=== PATIENT | female | born 1995 | race Asian ===

== ENCOUNTER 2024-01-07 14:26 | Inpatient (IN) | payer BC, SELFPAY ==
[2024-01-07] VITALS (9 sets, daily range): BP systolic 110–127; BP diastolic 72–90; BMI 25.7
[2024-01-07 11:51] LABS: % Basophils 0.6 % (0-2); % Eosinophils 3.1 % (0-6); % Immature Granulocytes 0.3 % (0-0.5); % Monocytes 5.9 % (1.7-9.3); % Neutrophils 65.1 % (42.2-75.2); Absolute Eosinophils 0.2 10^3/uL (0-0.7); Absolute Lymphocytes 1.7 10^3/uL (1.2-3.4); Absolute Monocytes 0.4 10^3/uL (0.1-0.6); Absolute Neutrophils 4.4 10^3/uL (1.4-6.5); Hematocrit 36.9 % (37.0-47.0); Hemoglobin 12.8 g/dL (12.0-16.0); Mean Corp Hgb Conc. 34.7 g/dL (33.0-37.0); Mean Corpuscular Hgb 31.4 pg (27.0-31.0); Mean Corpuscular Volume 90.4 fL (81.0-99.0); Nucleated Red Blood Cells % 0 %; Red Blood Cell Count 4.08 10^6/uL (4.20-5.40); Red Cell Dist. Width 12.1 % (11.5-14.5); White Blood Cell Count 6.8 10^3/uL (4.8-10.8)
[2024-01-07 11:59] LABS: INR 1.12; PT 14.2 Sec (11.4-14.6)
[2024-01-07 12:07] LABS: Platelet Count 0 10^3/uL (130-400)
[2024-01-07 12:09] LABS: ALT (SGPT) 18 U/L (0-35); AST (SGOT) 23 U/L (14-36); Albumin 4.3 g/dl (3.5-5.0); Alkaline Phosphatase 56 U/L (38-126); Blood Urea Nitrogen 23 mg/dl (7-17); Calcium 9.1 mg/dl (8.4-10.2); Carbon Dioxide 27 mmol/L (22-30); Chloride 105 mmol/L (98-107); Glucose 92 mg/dl (70-99); Potassium 4.1 mmol/L (3.5-5.1); Sodium 139 mmol/L (135-145); Total Bilirubin 0.6 mg/dl (0.2-1.3); eGFR > 60.00
--- NOTE | 2024-01-07 12:51 | ED.GENMED ---
History of Present Illness
General
Chief Complaint: Abnormal Lab Value
Source: patient
Exam Limitations: none
Time Seen by Provider: 01/07/24 12:31
Travel History
Have you had any contact with someone who has COVID-19?: No
Do you have any symptoms of coronavirus? Fever > 100 degrees, chills, cough, shortness of breath, sore throat, loss of taste or smell, muscle aches, or headache?: No
History of Present Illness
History of Present Illness:
28-year-old female with known history of ITP presents with nosebleed starting at 3 AM. She also notes purple spots on her legs. She denies lightheadedness or shortness of breath. She denies chest pain. She admits that she has been taking her
maintenance medication that is prescribed by her oncologist at [facility]. She just was not feeling up to taking the medicine. She notes a left-sided nosebleed.
Past History
Past History
ED Past Medical History: Other (Lupus, ITP)
ED Past Surgical History: None
Social History
Tobacco: Non-smoker
Alcohol: None
Personal: Single
Living: with family
Employment: Employed
Phy Exam
Physical Exam
Physical Exam:
General: Well-appearing female no acute respiratory distress
HEENT: Normocephalic atraumatic left-sided nosebleed noted. Right side is patent.
Heart: Regular rate and rhythm no murmurs
Lungs: Clear to auscultation bilateral
Skin: Purpuric lesions noted over the lower extremities bilaterally
Course
Orders/Labs/Results
Orders:
Orders
01/07/24 11:38
Complete Blood Count/With Diff Urgent
Comprehensive Metabolic Panel Urgent
PT/INR [Prothrombin Time] Urgent
01/07/24 13:32
Dexamethasone [Decadron] 40 mg PO NOW STA
Abnormal Lab Results
04/15/24
11:38
RBC 4.08 L 10^6/uL
(4.20-5.40)
Hct 36.9 L %
(37.0-47.0)
MCH 31.4 H pg
(27.0-31.0)
Plt Count 0 L* 10^3/uL
(130-400)
BUN 23 H mg/dl
(7-17)
Creatinine 0.5 L mg/dL
(0.6-1.0)
01/07/24 11:38
01/07/24 11:38
Vital Signs
Initial and Last Documented VS:
Initial Vital Signs
Temp Pulse Resp BP Pulse Ox
98.4 F 88 16 123/89 98
01/07/24 11:31 01/07/24 11:31 01/07/24 11:31 01/07/24 11:31 01/07/24 11:31
Last Documented Vital Signs
Temp Pulse Resp BP Pulse Ox
98.4 F 88 16 123/89 98
01/07/24 11:31 01/07/24 11:31 01/07/24 11:31 01/07/24 11:31 01/07/24 11:31
MDM/Problems Addressed
Differential Diagnosis Includes:
History of ITP with left-sided nosebleed. Will check labs.
Cotton with lidocaine epinephrine was placed into the left side of the nose
Platelet count is 0. Call placed to patient's parcel wrapper at [facility]
*Critical Care Note
Total Time (30-74mins, 75-104mins- exclusive of procedures): Not Applicable
Update Note
Update Note:
Discussed with Dr. Alize Roper at [facility], parcel wrapper. Cell number is [phone]. She recommended 40 mg of p.o. Decadron daily x 4 days with IVIG x 1 dose.
The nose was initially packed with cotton soaked with lidocaine and epinephrine. This was then replaced with an 8 cm Merocel sponge however the patient quickly bled around the edges of the sponge. This was exchanged for a 7.5 cm posterior balloon
which was inflated with approximately 5 cc of air. This seems to have provided some hemostasis. Hemoglobin reviewed. Will admit to hospital for further treatment and evaluation secondary to severe thrombocytopenia in the setting of active
epistaxis
ED Attending Note
-
Portions of this chart may have been created with voice recognition software.� Occasional wrong word or��sound alike� substitutions may have occurred due to the inherent limitations of voice recognition software.
Discharge Plan
Departure
Patient Disposition: Admit
Date of Disposition: 01/07/24
Time of Disposition: 13:50
Admit to: Med/Surg
Presentation/result/management discussed w/ accepting MD/DO: Hospitalist
Discharge Problem:
Acute idiopathic thrombocytopenic purpura, Epistaxis
Prescriptions:
No Action
hydroxychloroquine 200 mg Tablet
200 mg PO DAILY
Doptelet (30 tab pack) 20 mg Tablet
20 mg PO MOWEFR
prednisone 20 mg tablet
40 mg PO DAILY Qty: 14 0RF
Rx Instructions:
please follow up with your Reflexologist before completing
Claritin Liqui-Gel 10 mg Capsule
10 mg PO PRN (Reason: Seasonal Allergies)
sumatriptan succinate 50 mg tablet
50 mg PO ONCE Qty: 10 0RF
Rx Instructions:
50 mg orally; may take additional 50mg in 2hr, maximum 200mg q24h
promethazine 12.5 mg tablet
12.5 - 25 mg PO TID PRN (Reason: nausea and vomiting) Qty: 20 0RF
gabapentin 100 mg capsule
100 mg PO TID Qty: 20 0RF
Interventions
Interventions:
*Risk Screen - Suicide Last Done: 01/07/24 11:31
*General Assessment Last Done: 01/07/24 11:31
*ED COVID-19 Vaccine History Last Done: 01/07/24 11:31
Discharge Date and Time
Print Language: KUWAITI
--- NOTE | 2024-01-07 13:52 | HPS.HSE ---
Family Physician
-
Family Physician:
Chief Complaint
-
nose bleed
History of Present Illness
28-year-old with past medical history of ITP and lupus presented to us with nosebleed since this morning. Patient also noted purple spots on her legs today. Patient denied any headache, dizziness, syncopal episode. Patient denied any runny nose,
nasal congestion or cough. Patient denied any abdominal pain, nausea, vomiting, diarrhea. Patient denied dysuria hematuria. Patient stopped taking Doptelet for past 1 week. Patient follows up with the [facility]
On arrival platelets of 0. Nose was packed in the ER. Received a dose of Decadron in ER. Admitting for further management
Medical History
Past Medical History
Past Medical History: Reports Other
Additional Past Medical History:
ITP
Lupus
Past Surgical History: Reports Other
Additional Past Surgical History:
Back surgery
Right humerus surgery
Social History
Tobacco: Non-smoker
Alcohol: None
Drug: None
Personal: Single
Living: With Family
Employment: Employed
Family History
Family History: Not pertinent
Allergies / Home Medications
Allergies reflects when Allergies were last updated in [facility].
Home Medications with original date entered in [employer]
Allergy/Medication List:
Allergies
Allergy/AdvReac Type Severity Reaction Status Date / Time
azithromycin [From Zithromax] Allergy Unknown Verified 01/07/24 11:34
Home Medications
avatrombopag 20 mg tablet (Doptelet (30 tab pack)) 20 mg PO MOWEFR Autoimmune disorder 09/23/22
hydroxychloroquine 200 mg tablet 200 mg PO DAILY Autoimmune disorder 09/23/22
ketorolac 10 mg tablet 10 mg PO DAILYPRN PRN neck pains 01/07/24
Review of Systems
-
Constitutional: Reports No Symptoms
EENT: Reports Other (nose bleed)
Respiratory: Reports No Symptoms
Cardiac: Reports No Symptoms
Abdomen/GI: Reports No Symptoms
: Reports No Symptoms
Musculoskeletal: Reports No Symptoms
Skin: Reports No Symptoms
Neurological: Reports No Symptoms
Endocrine: Reports No Symptoms
Hematologic/Lymphatic: Reports No Symptoms
Psych: Reports No Symptoms
Physical Exam
Vital Signs
Vital Signs
Temp Pulse Resp BP Pulse Ox
98.4 F 88 16 123/89 98
01/07/24 11:31 01/07/24 11:31 01/07/24 11:31 01/07/24 11:31 01/07/24 11:31
Physical Exam
General: Well Developed, Well Nourished and No Apparent Distress
HEENT: NormoCephalic, Moist mucous membranes and Atraumatic
Respiratory: Clear
Cardiac: S1/S2 and Regular Rhythm; No Murmur or Rub
GI: Soft, Non Tender, Non Distended and Normal Bowel Sounds; No Organomegaly
Rectal: Deferred by Provider
Musculoskeletal: No Clubbing, No Cyanosis and No Edema
Skin: No Rash
Neuro: AO x 3 and Nonfocal/grossly intact
Psych: Calm
Laboratory Results
-
01/07/24 11:38
01/07/24 11:38
Laboratory Results
PT 14.2 Sec (11.4-14.6) 01/07/24 11:38
INR 1.12 01/07/24 11:38
Total Bilirubin 0.6 mg/dl (0.2-1.3) 01/07/24 11:38
AST 23 U/L (14-36) 01/07/24 11:38
ALT 18 U/L (0-35) 01/07/24 11:38
Alkaline Phosphatase 56 U/L (38-126) 01/07/24 11:38
Data Reviewed
-
Lab Data: Labs Reviewed by me
Impression/Plan
-
#Epistaxis likely from thrombocytopenia
-Platelets 0
-7.5 balloon in the left nasal cavity
-Hemoglobin stable at 12.8
-monitor hgb
-ENT consulted
# Thrombocytopenia history of ITP
-Platelets 0
-IVIG x 1
-Decadron 4 Mg p.o. daily
-hematology consulted
#DVT prophylaxis
-scd
#CODE status
-full code
--- NOTE | 2024-01-07 14:27 | W.PN.UPDATE ---
Update Note
Progress Note Update
This is an addendum to H&P written by THERAPEUTIC ASSISTANT Yojana Camarena.
I saw and examined the patient.
The THERAPEUTIC ASSISTANT's note was reviewed and I agree with the note.
Comment:
Ms. Dai Burrell is a 28 yo woman with hx ITP, SLE presents to the ER with nose bleed that started at 3AM. Patient had not taken Doptelet over past week. She follows with Hematology at [facility], [place]. Upon arrival triage vitals stable. Labs
significant for Hg 12.8, PLT 0. ER PA discussed case with patient's linting machine operator, Dr. Alize Roper who advised decadron 40 daily x 4 and IVIG x 1. Per Dr. Roper, in setting of ITP PLT transfusion effect wouldn't be significant.
On exam patient is AAO x 3, anxious, nasal packing in place on left . CV S1, S2, RRR, lungs clear, Abdomen benign. Skin with purpura.
-admit patient
-keep packing in place
-ENT consult
-Heme consult
-decadron 40 x 4 days, IVIG x 1
-confirming plan with Dr. Reese
-resume COMMODITY ANALYST Doptelet
-blood consent obtained in ER
-patient with nausea, will give IVF, zofran PRN, EKG to monitor QTc
-continue COMMODITY ANALYST Plaquenil for Lupus
[2024-01-07] MEDS: NSS 1000 IV (15:09)
[2024-01-07] MEDS: ZOFRAN 4 MG IV (15:11)
[2024-01-07] MEDS: TYLENOL 650 MG PO (16:04)
--- NOTE | 2024-01-07 16:50 | PTCARENOTE ---
1650 Pt arrived from ER, alert and oriented x 3. Noted left nare has nose packing intact. Noted MD orders, continue to monitor pt closely.
[2024-01-07 17:28] LABS: Hematocrit 34.5 % (37.0-47.0); Hemoglobin 11.9 g/dL (12.0-16.0)
[2024-01-07] MEDS: ULTRAM 50 MG PO (18:53)
[2024-01-07] MEDS: GAMMAGARD 200 IV (20:06)
[2024-01-08] MEDS: ULTRAM 50 MG PO (05:43)
[2024-01-08 07:30] VITALS: BP 134/88
--- NOTE | 2024-01-08 07:37 | CON.ONC ---
Impression
Impression
ITP, relapsed after stopping doptelet
lupus
Plan
Plan
await CBC this am
Continue Dex 40mg/d x 4
s/p IVIG 01/06
Resume doptelet - her family will bring in home meds. Will start 40mg/d, to be tapered as outpt as able
Will follow
Patient History
History of Present Illness
28 yo F w/ ITP on Doptelet, per Dr. Roper at [facility], who presented with nosebleed, and was found to have platelet count of 0. She admits to not taking her doptelet for the past week, has been struggling with the 2yr anniversary of her mom's and
her appetite has been poor (doptelet is taken w/ food). She was given Dex 40mg and IVIG in the ER. Her nostril was packed.
She had previously been on doptelet 40mg/d, tapered down to 20mg/d.
She has been taking her lupus meds.
She reports some easy bruising, but no bleeding other than nose.
Past-Medical/Surgical History
Past Medical History
Past Medical History: Reports Other
Additional Past Medical History:
ITP
Lupus
Past Surgical History: Reports Other
Additional Past Surgical History:
Back surgery
Right humerus surgery
Social History
Tobacco: Non-smoker
Alcohol: None
Drug: None
Personal: Single
Living: With Family
Employment: Employed
Family History
Family History: Not pertinent
Patient Medication
�Medication �Instructions �Recorded �Confirmed �Last Taken �Type
avatrombopag 20 mg tablet 20 mg PO MOWEFR Autoimmune disorder 09/23/22 01/07/24 01/04/24 History
(Doptelet (30 tab pack))
hydroxychloroquine 200 mg tablet 200 mg PO DAILY Autoimmune disorder 09/23/22 01/07/24 01/06/24 History
ketorolac 10 mg tablet 10 mg PO DAILYPRN PRN neck pains 01/07/24 01/07/24 Unknown History
Active Medications
Generic Name Dose Route Start Last Admin
Trade Name Freq PRN Reason Stop Dose Admin
Acetaminophen 650 mg 01/07/24 20:00
Acetaminophen 325 Mg Tablet PO 02/04/24 19:59
Q4HPRN PRN
mild pain/TREVINO/temp> 100.4F
Bisacodyl 10 mg 01/07/24 17:09
Bisacodyl 10 Mg Rectal Suppository RECTAL 02/04/24 17:08
[id number] PRN
constipation
Dexamethasone 40 mg 01/08/24 08:00
Dexamethasone 4 Mg Tablet PO 01/10/24 08:01
DAILY GABBI
Hydroxychloroquine Sulfate 200 mg 01/08/24 08:00
Hydroxychloroquine 200 Mg Tablet PO 02/05/24 07:59
DAILY GABBI
Immune Globulin 20 gram in 200 mls @ 0 mls/hr 01/07/24 20:00 01/07/24 20:06
Gammagard IV 01/08/24 08:00 200 mls
PER PROTOCOL GABBI Administration
Protocol
Per Protocol
Non-Formulary Medication 20 mg 01/07/24 17:09
Avatrombopag [Doptelet (30 Tab Pack)] PO 02/04/24 17:08
MOWEFR GABBI
Polyethylene Glycol 17 grams 01/07/24 17:09
Polyethylene Glycol Powder 17 Grams Packet PO 02/04/24 17:08
DAILYPRN PRN
constipation
Senna/Docusate Sodium 1 tablet 01/07/24 17:09
Docusate W/Senna (Linnette-Colace) Tablet PO 02/04/24 17:08
BIDPRN PRN
constipation
Sodium Chloride 0 flush 01/07/24 18:00
Sodium Chloride 0.9% (Flush) Syringe IV 02/04/24 17:59
PER PROTOCOL GABBI
Tramadol HCl 25 mg 01/07/24 17:45
Tramadol Hcl 50 Mg Tablet PO 02/04/24 17:44
Q6HPRN PRN
moderate pain
Tramadol HCl 50 mg 01/07/24 17:45 01/08/24 05:43
Tramadol Hcl 50 Mg Tablet PO 02/04/24 17:44 50 mg
Q6HPRN PRN Administration
severe pain
Review of Systems
-
History Source: Patient
All Other Systems: Not reviewed unless documented
Physical Exam
-
General: Well Developed, Well Nourished and No Apparent Distress
HEENT: Other (left nasal packing)
Musculoskeletal: No Clubbing, No Cyanosis and No Edema
Skin: Negative No Ecchymosis (few small bruises)
Psych: Calm and Intact Judgement/Insight
Labs
Lab Results
WBC 6.8 10^3/uL (4.8-10.8) 01/07/24 11:38
RBC 4.08 10^6/uL (4.20-5.40) L 01/07/24 11:38
Hgb 11.9 g/dL (12.0-16.0) L 01/07/24 17:17
Hct 34.5 % (37.0-47.0) L 01/07/24 17:17
MCV 90.4 fL (81.0-99.0) 01/07/24 11:38
MCH 31.4 pg (27.0-31.0) H 01/07/24 11:38
MCHC 34.7 g/dL (33.0-37.0) 01/07/24 11:38
RDW 12.1 % (11.5-14.5) 01/07/24 11:38
Plt Count 0 10^3/uL (130-400) L* 01/07/24 11:38
MPV Not Reportable 01/07/24 11:38
Abs Immat Gran (auto) 0.0 10^3/uL (0-0.05) 01/07/24 11:38
Absolute Neuts (auto) 4.4 10^3/uL (1.4-6.5) 01/07/24 11:38
Absolute Lymphs (auto) 1.7 10^3/uL (1.2-3.4) 01/07/24 11:38
Absolute Monos (auto) 0.4 10^3/uL (0.1-0.6) 01/07/24 11:38
Absolute Eos (auto) 0.2 10^3/uL (0-0.7) 01/07/24 11:38
Absolute Basos (auto) 0.0 10^3/uL (0-0.2) 01/07/24 11:38
Immature Gran % 0.3 % (0-0.5) 01/07/24 11:38
Neutrophils % 65.1 % (42.2-75.2) 01/07/24 11:38
Lymphocytes % 25.0 % (20.5-51.1) 01/07/24 11:38
Monocytes % 5.9 % (1.7-9.3) 01/07/24 11:38
Eosinophils % 3.1 % (0-6) 01/07/24 11:38
Basophils % 0.6 % (0-2) 01/07/24 11:38
Creatinine 0.5 mg/dL (0.6-1.0) L 01/07/24 11:38
Vital Signs
Vital Signs
Temp Pulse Resp BP Pulse Ox
97.5 F 70 14 110/75 99
01/07/24 23:00 01/07/24 23:00 01/07/24 23:00 01/07/24 23:00 01/07/24 23:00
--- NOTE | 2024-01-08 08:18 | W.PN.ENT ---
Today's Communication
-
Leave packing in for at least 48hrs and start abx ppx.
Impression / Plan
-
The patient is doing we with the current nasal packing. Has not yet been 24hrs. Will leave the pack in for at least 48hrs due to ITP. I discussed the reasoning with the patient. She should get staph ppx while packing in place. Will follow.
Subjective Data
-
Patient was seen and examined. She is a 28yoF with ITP Plt 0 and acute epistaxis at 3am yesterday after blowing her nose repeatedly. She was packed in the ER with good hemostasis. She is being treated for the ITP. There has not been further bleeding
since the packing was placed.
Objective Data
-
Vital Signs
Temp Pulse Resp BP Pulse Ox
97.5 F 70 14 110/75 99
01/07/24 23:00 01/07/24 23:00 01/07/24 23:00 01/07/24 23:00 01/07/24 23:00
PT 14.2 Sec (11.4-14.6) 01/07/24 11:38
INR 1.12 01/07/24 11:38
Calcium 9.1 mg/dl (8.4-10.2) 01/07/24 11:38
Total Bilirubin 0.6 mg/dl (0.2-1.3) 01/07/24 11:38
AST 23 U/L (14-36) 01/07/24 11:38
ALT 18 U/L (0-35) 01/07/24 11:38
Alkaline Phosphatase 56 U/L (38-126) 01/07/24 11:38
Physical Exam
-
Rapid rhino in place left nasal cavity
OC/OP Clear, no blood or clots
[2024-01-08 09:04] LABS: Blood Urea Nitrogen 16 mg/dl (7-17); Calcium 9.1 mg/dl (8.4-10.2); Carbon Dioxide 21 mmol/L (22-30); Chloride 109 mmol/L (98-107); Estimated Creatinine Clearance 118 ml/min; Glucose 108 mg/dl (70-99); Potassium 3.6 mmol/L (3.5-5.1); Sodium 137 mmol/L (135-145); eGFR > 60.00
[2024-01-08] MEDS: DECADRON 40 MG PO (09:09)
[2024-01-08] MEDS: PLAQUENIL 200 MG PO (09:12)
[2024-01-08] MEDS: KEFLEX 500 MG PO ×2 (09:12→20:26)
[2024-01-08] MEDS: NORCO 5/325 1 TABLET PO ×2 (09:16→13:32)
[2024-01-08 09:20] LABS: Hematocrit 35.4 % (37.0-47.0); Hemoglobin 12.6 g/dL (12.0-16.0); Mean Corp Hgb Conc. 35.6 g/dL (33.0-37.0); Mean Corpuscular Hgb 31.4 pg (27.0-31.0); Mean Corpuscular Volume 88.3 fL (81.0-99.0); Red Blood Cell Count 4.01 10^6/uL (4.20-5.40); White Blood Cell Count 11.9 10^3/uL (4.8-10.8)
[2024-01-08 09:23] LABS: Platelet Count 7 10^3/uL (130-400)
--- NOTE | 2024-01-08 11:31 | W.PN.HOSP.TC ---
Today's Communication/Plan
-
see plan
Assessment / Plan
Assessment / Plan
Ms. Dai Burrell is a 28 yo woman with hx ITP, SLE presents to the ER with nose bleed that started at 3AM. Patient had not taken Doptelet over past week. She follows with Hematology at [facility]. Upon arrival triage vitals stable. Labs
significant for Hg 12.8, PLT 0. ER PA discussed case with patient's tailor women's garment alteration, Dr. Alize Roper who advised decadron 40 daily x 4 and IVIG x 1. Per Dr. Roper, in setting of ITP PLT transfusion effect wouldn't be significant.
PLT up to 7 this AM
-appreciate ENT consult, keep packing in place another 24 hours
-appreciate Heme consult
-decadron 40 x 4 days (day 2),
-s/p IVIG x 1
-confirming plan with Dr. Reese
-resume PEOPLESOFT FINANCIAL DEVELOPER Doptelet --> increased dosing per Heme
-blood consent obtained in ER
-continue PEOPLESOFT FINANCIAL DEVELOPER Plaquenil for Lupus
Anticipated Discharge: 24 - 48 hours
Subjective/Interval History
-
Date of Service: January 08, 2024
feeling better today
increased bruising, no further epistaxis
Objective Data
-
Labs:
Laboratory Results
01/08/24
07:47
WBC 11.9 H
Hgb 12.6
Hct 35.4 L
Plt Count 7 L* D
Sodium 137
Potassium 3.6
Chloride 109 H
Carbon Dioxide 21 L
BUN 16
Creatinine 0.5 L
Glucose 108 H
Calcium 9.1
Vital Signs:
Vital Signs
Temp Pulse Resp BP Pulse Ox
97.7 F 72 19 134/88 100
01/08/24 07:30 01/08/24 07:30 01/08/24 07:30 01/08/24 07:30 01/08/24 07:30
Review of Systems
-
History Source: Patient
All other systems: Reviewed and negative
Physical Exam
-
General: No Apparent Distress
HEENT: Normocephalic, Atraumatic and Other (Clean and dry left nasal packing, right nostril clean and dry)
Respiratory: Clear to Auscultation; Negative Wheezes
Cardiac: Regular Rhythm and S1/S2
Breast: Deferred by me
GI: Nondistended
Rectal: Deferred by Provider
Genito-urinary: Deferred by me
Musculoskeletal: No Edema
Skin: Warm
Neuro: Awake
Psych: Calm
Data Reviewed
-
Diagnostic Radiology: Report Reviewed by me
Labs: Labs Reviewed by me
[2024-01-08] MEDS: NON-FORMULARY ITEM 40 MG PO (13:26)
[2024-01-08 15:00] VITALS: BP 131/79
--- NOTE | 2024-01-08 15:47 | CM ---
manager intelligence reviewed patient's chart and met with patient and patient lives with father in a 2 story home, patient is independent with adl's and ambulation, no dme, patient has a prescription plan and uses [facility] pharmacy.
PCP: Dr Sewell
Plan; Home when stable, no needs.
[2024-01-08] MEDS: MELATONIN 5 MG PO (21:52)
[2024-01-08] MEDS: TYLENOL 650 MG PO (21:52)
[2024-01-08 22:30] VITALS: BP 99/66
--- NOTE | 2024-01-09 04:45 | DOWNTIME ---
There was a [email or web address] Client Order Detailer Downtime on 01/09/2024 from 0100 to 01/09/2024 at 0439. Downtime documentation of patient's care, including medication administrations, has been reconciled in the electronic record per guidelines. Refer to the
patient's paper chart under the miscellaneous tab to see printed paper medication records and downtime forms.
[2024-01-09 07:30] VITALS: BP 121/58
--- NOTE | 2024-01-09 08:27 | W.PN.ENT ---
Today's Communication
-
seen at bedside
Impression / Plan
-
The patient is doing we with the current nasal packing. Has not yet been 24hrs. Will leave the pack in for at least 48hrs due to ITP. I discussed the reasoning with the patient. She should get staph ppx while packing in place. Will follow.
addendum 01/08 no active bleeding, packing removed, cottonball coated with vaseline placed in nose
follow up with Dr Martínez in 1-2 weeks in office
Subjective Data
-
Patient was seen and examined. She is a 28yoF with ITP Plt 0 and acute epistaxis at 3am yesterday after blowing her nose repeatedly. She was packed in the ER with good hemostasis. She is being treated for the ITP. There has not been further bleeding
since the packing was placed.
addendum 01/08 bleeding well controlled
Objective Data
-
Vital Signs
Temp Pulse Resp BP Pulse Ox
97.1 F 70 19 121/58 100
01/09/24 07:30 01/09/24 07:30 01/09/24 07:30 01/09/24 07:30 01/09/24 07:30
Intake & Output
01/08/24 01/09/24 01/10/24
06:59 06:59 06:59
Intake:
Oral fluids 420 / 420
Lab Results
01/08/24 07:47
PT 14.2 Sec (11.4-14.6) 01/07/24 11:38
INR 1.12 01/07/24 11:38
Calcium 9.1 mg/dl (8.4-10.2) 01/08/24 07:47
Total Bilirubin 0.6 mg/dl (0.2-1.3) 01/07/24 11:38
AST 23 U/L (14-36) 01/07/24 11:38
ALT 18 U/L (0-35) 01/07/24 11:38
Alkaline Phosphatase 56 U/L (38-126) 01/07/24 11:38
Physical Exam
-
no active bleeding before or after packing removal
Chest: Clear
Respiratory: Clear
Data Reviewed
-
Radiology Results: Report Reviewed
[2024-01-09] MEDS: PLAQUENIL 200 MG PO (08:28)
[2024-01-09] MEDS: NON-FORMULARY ITEM 40 MG PO (08:28)
[2024-01-09] MEDS: KEFLEX 500 MG PO (08:28)
[2024-01-09] MEDS: DECADRON 40 MG PO (08:36)
--- NOTE | 2024-01-09 08:41 | W.PN.ONC2 ---
Today's Communication / Plan
-
Await PLT. Seems to be improving. Suspect will be stable for D/C if > 10K.
Impression
Impression
ITP, relapsed after stopping doptelet
lupus
Plan
Plan
Continue Dex 40mg/d x 4 days
s/p IVIG 01/06
Resume doptelet. Will start 40mg/d, to be tapered as outpt as able
Will follow
Subjective/Objective
Chief Complaint
ACS Heme Onc
Subjective
No serious bleeding but some bruising near site of BP cuff. Back on Doptelet.
Vital Signs:
Vital Signs
Temp Pulse Resp BP Pulse Ox
97.1 F 70 19 121/58 100
01/09/24 07:30 01/09/24 07:30 01/09/24 07:30 01/09/24 07:30 01/09/24 07:30
Lab Results:
Laboratory Data
WBC 11.9 10^3/uL (4.8-10.8) H 01/08/24 07:47
Hgb 12.6 g/dL (12.0-16.0) 01/08/24 07:47
Plt Count 7 10^3/uL (130-400) L* D 01/08/24 07:47
PT 14.2 Sec (11.4-14.6) 01/07/24 11:38
INR 1.12 01/07/24 11:38
eGFR > 60.00 01/08/24 07:47
Physical Exam
Cardiology: S1 and S2
Pulmonary: Clear
GI: Soft
[2024-01-09 09:02] LABS: Hemoglobin 12.5 g/dL (12.0-16.0); Mean Corp Hgb Conc. 35.7 g/dL (33.0-37.0); Mean Corpuscular Hgb 31.8 pg (27.0-31.0); Mean Corpuscular Volume 89.1 fL (81.0-99.0); Platelet Count 31 10^3/uL (130-400); Red Blood Cell Count 3.93 10^6/uL (4.20-5.40); Red Cell Dist. Width 12.1 % (11.5-14.5); White Blood Cell Count 14.4 10^3/uL (4.8-10.8)
--- NOTE | 2024-01-09 10:07 | W.PN.HOSP.TC ---
Today's Communication/Plan
-
Ok for DC today
Assessment / Plan
Assessment / Plan
Ms. Dai Burrell is a 28 yo woman with hx ITP, SLE presents to the ER with nose bleed that started at 3AM. Patient had not taken Doptelet over past week. She follows with Hematology at [facility]. Upon arrival triage vitals stable. Labs
significant for Hg 12.8, PLT 0. ER PA discussed case with patient's personal development educator, Dr. Alize Roper who advised decadron 40 daily x 4 and IVIG x 1. Per Dr. Roper, in setting of ITP PLT transfusion effect wouldn't be significant.
Thrombocytopenia
Epistaxis
-appreciate ENT consult, packing removed this AM
-appreciate Heme consult
-decadron 40 x 4 days (day 3)
-s/p IVIG x 1
-resume MAINSPRING FORMER Doptelet --> increased dosing per Heme
-OK for DC today with close follow up with ENT and [facility]
-continue MAINS[employer]ING FORMER Plaquenil for Lupus
Anticipated Discharge: Today
Subjective/Interval History
-
Date of Service: January 09, 2024
feeling well
nasal packing removed, no further bleeding
feels ready to go home
Objective Data
-
Labs:
Laboratory Results
01/09/24
07:56
WBC 14.4 H
Hgb 12.5
Hct 35.0 L
Plt Count 31 L D
Vital Signs:
Vital Signs
Temp Pulse Resp BP Pulse Ox
97.1 F 70 19 121/58 100
01/09/24 07:30 01/09/24 07:30 01/09/24 07:30 01/09/24 07:30 01/09/24 07:30
I&O
01/08/24 01/09/24 01/10/24
06:59 06:59 06:59
Intake Total 420 / 420
Balance 420 / 420
Review of Systems
-
History Source: Patient
All other systems: Reviewed and negative
Physical Exam
-
General: No Apparent Distress
HEENT: Normocephalic, Atraumatic and Other (cotton ball left nostril no bleeding)
Respiratory: Clear to Auscultation; Negative Wheezes
Cardiac: Regular Rhythm and S1/S2
Breast: Deferred by me
GI: Nondistended
Rectal: Deferred by Provider
Genito-urinary: Deferred by me
Musculoskeletal: No Edema
Skin: Warm
Neuro: Awake
Psych: Calm
Data Reviewed
-
Diagnostic Radiology: Report Reviewed by me
Labs: Labs Reviewed by me
--- NOTE | 2024-01-09 10:17 | W.DS.TRANS ---
DC Summary - Manager Pmo
-
Discharge Instructions:
Discharge Diagnosis/Procedures thrombocytopenia, epistaxis
Diet Regular
Activity As tolerated
Driving Restrictions As prior to admission
Bathing Restrictions None
Blood Work follow up CBC to be ordered within next 2-[address] Roper
Instructions:
Stand-Alone Forms:
Changes to Home Medications: Yes
Discharge Medications:
DC Medications w/original date entered in [facility]
hydroxychloroquine 200 mg tablet 200 mg PO DAILY Autoimmune disorder 09/23/22
avatrombopag 20 mg tablet (Doptelet (30 tab pack)) 40 mg (2 x 20 mg) PO DAILY Autoimmune disorder #30 tabs 01/09/24
dexamethasone 20 mg tablet 40 mg (2 x 20 mg) PO DAILY #2 tabs 01/09/24
Home Medication Changes
You have one more dose of Decadron 40mg to take tomorrow morning.
Take Doptelet 40mg daily until further directed by outpatient Research Center Director.
Do not use Ketorolac or other NSAIDS (Advil, Aleve, Ibuprofen, Motrin etc) until given approval by your outpatient Research Center Director.
Pending Results: No
[2024-01-09 12:00] VITALS: BP 120/74
--- NOTE | 2024-01-09 15:01 | W.DCSUMMARY ---
Discharge Summary
Discharge Data
Date of Admission: 01/07/24
Date of Discharge: 01/09/24
-
Pending Results: No
Hospital Course
Discharging Physician : Dr. Jodie Vergara
Disposition : Home
Primary care physician : Dr. Brendan Sewell
Principal Discharge diagnosis : thrombocytopenia, epistaxis
Hospital Course :
Ms. Dai Burrell is a 28 yo woman with hx ITP, SLE presents to the ER with significant nose bleed that started at 3AM. Patient had not taken Doptelet over past week. She follows with Hematology at [facility]. Upon arrival triage vitals stable.
Labs significant for Hg 12.8, PLT 0. Left nare was packed in the ER with hemostasis achieved. ER PA discussed case with patient's christmas tree grower, Dr. Alize Roper who advised decadron 40 daily x 4 and IVIG x 1.
Patient was admitted to medicine with Hematology and ENT consulting. She received IVIG on day of admission and started on Decadron course. Her [employer] Doptelet was resumed at higher dosing (40mg daily).
Her PLT improved to 7 and then 31 on day of discharge. Her packing was removed by ENT.
Patient is discharged with one more day of Decadron to complete 4 day course. She will continue Doptelet at 40mg daily, to be tapered by Dr. Roper. Patient knows to call office for follow up appointment.
She will follow up with ENT, Dr. Martínez, in 1-2 weeks.
Time spent on discharge was 35 minutes.
Important imaging findings :
Procedure findings :
Discharge Plan
-
Patient Disposition: Home (Routine Discharge)
Discharge Diagnosis/Procedures: thrombocytopenia, epistaxis
Diet: Regular
Activity: As tolerated
Driving Restrictions: As prior to admission
Bathing Restrictions: None
Blood Work: follow up CBC to be ordered within next 2-[address] Roper
Activity Restrictions/Additional Instructions:
Please follow up with your [place] Area Field Manager, Dr. Roper, at next available appointment. Please let Dr. Roper know about increased dosing of Doptelet. She will determine schedule for tapering this medication. She will also order a follow up CBC
(lab test to monitor Platelet count)
Referrals:
Brendan Sewell MD [Family Provider] - in less than 1 week
Mallika Martínez MD [Active] - in one to two weeks
Additional Discharge Medication Instructions: You have one more dose of Decadron 40mg to take tomorrow morning.
Take Doptelet 40mg daily until further directed by outpatient Area Field Manager.
Do not use Ketorolac or other NSAIDS (Advil, Aleve, Ibuprofen, Motrin etc) until given approval by your outpatient Area Field Manager.
Prescriptions:
New
dexamethasone 20 mg tablet
40 mg PO DAILY Qty: 2 0RF
Rx Instructions:
Take 2 tabs (40mg) on morning of 01/10/24
Continued
hydroxychloroquine 200 mg Tablet
200 mg PO DAILY
Changed
Doptelet (30 tab pack) 20 mg Tablet
40 mg PO DAILY Qty: 30 0RF
Rx Instructions:
Take 40mg daily until further directed by outpatient Area Field Manager.
Discontinued
ketorolac 10 mg tablet
10 mg PO DAILYPRN PRN (Reason: neck pains)
Discharge Orders:
Discharge Patient (As Directed); Ordered 01/09/24
Ordered By: Jodie Vergara
Discharge Date and Time
Discharge Date/Time: 01/09/24 12:38
Print Language: GREEK
== END 2024-01-09 12:38 | disposition home or self-care (01) | DRG 813 ==
LOC: 4 WEST ACU 14:26
PROVIDERS: Emergency Medicine; Otolaryngology; Registered Nurse; ADMITTING PHYSICIAN Student in an Organized Health Care Education/Training Program; EMERGENCY PHYSICIAN Emergency Medicine; FAMILY PHYSICIAN Family Medicine; OTHER PHYSICIAN Internal Medicine Hematology & Oncology
PROC: 2Y41X5Z Packing of Nasal Region using Packing Material (ICD-10-PCS; 2024-01-08)
DX: D69.3 Immune thrombocytopenic purpura (principal); Z86.2 Personal history of diseases of the blood and blood-forming organs and certain disorders involving the immune mechanism
CPT/HCPCS: 30901; 80048; 80053; 85014; 85018; 85025; 85027; 85610; 93005; 99285; J1569